=== PATIENT | male | born 1975 | race African-American/Black ===

== ENCOUNTER 2018-08-17 10:30 | Emergency (ER) | payer MEDICAID ==
[~2018-08-17] VITALS: Ht 175.3 cm; Wt 82.0 kg
[2018-08-17 10:50] VITALS: BP 131/72
[2018-08-17] MEDS ORDERED: METHOCARBAMOL 500MG TABLET PO ONE (12:00)
[2018-08-17] MEDS ORDERED: KETOROLAC 30MG/ML VIAL IM ONE (12:00)
== END 2018-08-17 13:58 | disposition home or self-care (01) ==
LOC: ER 10:49
DX: M54.9 Dorsalgia, unspecified (principal)
CPT/HCPCS: 72070; 72100; 93005; 96372; 99283; J1885